=== PATIENT | female | born 1970 | race African-American/Black ===

== ENCOUNTER 2023-01-06 12:46 | Emergency (ER) | payer MEDICAID, OTHER ==
[~2023-01-06] VITALS: Ht 160 cm; Wt 93.6 kg
[2023-01-06 13:33] LABS: Urine Bacteria FEW /hpf (None Seen); Urine Blood Negative /uL (Negative); Urine Hyaline Cast FEW /lpf (0 - 2); Urine WBC 13 /hpf (0 - 5)
[2023-01-06 14:16] VITALS: BP 177/102; PULSE 111; RESP 16; TEMP 97.9; O2SAT 95
[2023-01-06] MEDS ORDERED: MET500T PO (15:50)
[2023-01-06] MEDS ORDERED: DOXY-286 PO (15:50)
== END 2023-01-06 16:06 | disposition home or self-care (01) ==
LOC: ER 12:46
DX: N76.0 Acute vaginitis (principal); N39.0 Urinary tract infection, site not specified; E11.65 Type 2 diabetes mellitus with hyperglycemia; Z11.3 Encounter for screening for infections with a predominantly sexual mode of transmission
CPT/HCPCS: 81001; 81025; 87210